=== PATIENT | female | born 1995 | race Caucasian/White ===

== ENCOUNTER 2018-10-12 15:04 | Emergency (ER) | payer OTHER ==
[2018-10-12] MEDS: SOD CHLORIDE 0.9% 1,000 ML IV (17:35)
[2018-10-12] MEDS: ACETAMINOPHEN 325 MG TAB PO (17:36)
[2018-10-12] MEDS: KETOROLAC 30 MG INJ IV (17:36)
[2018-10-12 17:41] LABS: ADD UMIC YES; UR ASCORBIC ACID NEGATIVE (NEGATIVE); UR BACTERIA FEW /HPF (NONE SEEN); UR BILIRUBIN (Dip) NEGATIVE (NEGATIVE); UR BLOOD (Dip) NEGATIVE (NEGATIVE); UR CLARITY CLEAR (CLEAR); UR COLOR YELLOW (YELLOW); UR GLUCOSE (Dip) NEGATIVE (NEGATIVE); UR KETONES (Dip) NEGATIVE (NEGATIVE); UR LEUKOCYTE ESTERASE (Dip) 1+ Leu/ul (NEGATIVE); UR NITRITE (Dip) NEGATIVE (NEGATIVE); UR RBC 3 /HPF (0-5); UR SPECIFIC GRAVITY (Dip) 1.013 (1.003-1.030); UR SQUAMOUS EPITHELIAL CELL FEW /HPF (FEW); UR TOTAL PROTEIN (Dip) NEGATIVE (NEGATIVE); UR UROBILINOGEN (Dip) NEGATIVE (NEGATIVE); UR WBC 84 /HPF (0-5)
[2018-10-12 17:47] LABS: ADD MAN DIFF? NO
[2018-10-12 17:51] LABS: ABNORMAL IP MESSAGE 1; BASOPHILS % 0.1 % (0.0-2.0); EOSINOPHILS % 0.1 % (0.0-7.0); HEMATOCRIT 35.4 % (37.0-47.0); HEMOGLOBIN 11.8 g/dl (12.0-16.0); LYMPHOCYTES # 1.6 10^3/ul (0.8-2.9); MEAN CORPUSCULAR HGB CONC 33.3 g/dl (32.0-37.0); MEAN CORPUSCULAR VOLUME 83.9 fl (82.0-101.0); MONOCYTE # 1.1 10^3/ul (0.3-0.9); MONOCYTES % 7.8 % (0.0-11.0); NEUTROPHIL # 11.5 10^3/ul (1.6-7.5); NEUTROPHILS % 80.4 % (39.0-77.0); PLATELET COUNT 163 10^3/UL (140-415); RED BLOOD COUNT 4.22 10^6/ul (4.20-5.40); RED CELL DISTRIBUTION WIDTH 14.9 % (11.5-14.5)
[2018-10-12 17:51] LABS: WHITE BLOOD COUNT 14.3 10^3/ul (4.8-10.8)
[2018-10-12 17:52] LABS: POSITIVE DIFF @See below
[2018-10-12 18:08] LABS: ALANINE AMINOTRANSFERASE 44 IU/L (13-69); ALBUMIN 4.3 g/dl (3.3-4.9); ALBUMIN/GLOBULIN RATIO 1.22; ALKALINE PHOSPHATASE 88 IU/L (42-121); ANION GAP 13 (5-13); ASPARTATE AMINO TRANSFERASE 41 IU/L (15-46); BILIRUBIN,INDIRECT 0.5 mg/dl (0-1.1); BILIRUBIN,TOTAL 0.5 mg/dl (0.2-1.3); BLOOD UREA NITROGEN 9 mg/dl (7-20); CALCIUM 9.7 mg/dl (8.4-10.2); CARBON DIOXIDE 24 mmol/L (21-31); CHLORIDE 100 mmol/L (97-110); CREATININE 0.64 mg/dl (0.44-1.00); Estimated GFR > 60 mL/min (>60); GLUCOSE 100 mg/dl (70-220); LIPASE 37 U/L (23-300); POTASSIUM 3.9 mmol/L (3.5-5.1); SODIUM 137 mmol/L (135-144); TOTAL PROTEIN 7.8 g/dl (6.1-8.1)
[2018-10-12] MEDS: CEFTRIAXONE 1 GM/50 ML (PMX) 50 ML IVPB (19:30)
== END 2018-10-12 20:22 | disposition home or self-care (01) ==
LOC: FTE 15:04
DX: N10 Acute pyelonephritis (principal)
CPT/HCPCS: 36415; 76775; 80053; 81001; 81025; 83690; 85025; 96361; 96365; 96375; 99285-25